=== PATIENT | female | born 1950 | race Caucasian/White ===

== ENCOUNTER 2016-12-02 20:41 | Emergency (ER) | payer MEDICARE, OTHER ==
--- NOTE | 2016-12-03 07:40 | RAD ---
WRIST- RIGHT 3 VIEWS HISTORY: Fall with recent surgery. COMPARISONS: Remote examination of 08/08/2015. FINDINGS: 3 views of the right wrist demonstrate prior volar plate and screw fixation of the distal radius. The hardware appears to remain intact with no significant angulation of the visualized radial fracture fragments identified. There is an ulnar metaphyseal fracture noted as well of unknown age. No significant angulation is seen. Osteoarthritic changes of the medial carpus and the first carpometacarpal articulation are identified. Detail is obscured by the overlying brace material. IMPRESSION: 1. A distal radial metaphyseal fracture with prior volar plate and screw fixation. No findings of hardware failure are suggested. 2. A minimally displaced distal right ulnar metaphyseal fracture of unknown age without significant angulation. 3. Osteoarthritic changes of the medial carpus and the first carpometacarpal articulation.
== END 2016-12-02 22:41 | disposition home or self-care (01) ==
LOC: ED 20:41
DX: M25.531 Pain in right wrist (principal); H54.0 Blindness, both eyes; E11.9 Type 2 diabetes mellitus without complications; Z79.84 Long term (current) use of oral hypoglycemic drugs; Z85.43 Personal history of malignant neoplasm of ovary; Z85.3 Personal history of malignant neoplasm of breast; Z90.710 Acquired absence of both cervix and uterus; W18.11XA Fall from or off toilet without subsequent striking against object, initial encounter; Z91.81 History of falling; Y93.E8 Activity, other personal hygiene; Y92.10 Unspecified residential institution as the place of occurrence of the external cause